=== PATIENT | male | born 1995 | race Caucasian/White ===

== ENCOUNTER 2017-08-05 12:10 | Emergency (ER) | payer OTHER ==
[~2017-08-05] VITALS: Ht 175.3 cm; Wt 97.7 kg
[2017-08-05] MEDS ORDERED: ACETAMINOPHEN 500 MG TABLET PO ONE (12:45)
[2017-08-05] MEDS ORDERED: DiphenhydrAMINE HCL 50 MG CAPSULE PO ONE (12:45)
[2017-08-05] MEDS ORDERED: PredniSONE 20 MG TABLET PO ONE (12:45)
[2017-08-05 13:20] VITALS: BP 125/65
== END 2017-08-05 13:44 | disposition home or self-care (01) ==
LOC: EMS 12:11
DX: R21 Rash and other nonspecific skin eruption (principal); R00.0 Tachycardia, unspecified; F17.210 Nicotine dependence, cigarettes, uncomplicated
CPT/HCPCS: 99285; 99406; J7512

== ENCOUNTER 2018-11-29 14:56 | Emergency (ER) | payer OTHER ==
[~2018-11-29] VITALS: Ht 175.3 cm; Wt 86.4 kg
[2018-11-29] MEDS ORDERED: ACETAMINOPHEN 325 MG TABLET PO ONE (16:15)
[2018-11-29] MEDS ORDERED: LIDOCAINE 1% 10 ML VIAL INJ ONE (16:15)
[2018-11-29] MEDS ORDERED: POVIDONE-IODINE 10% 15 ML SOLUTION UD TP ONE (16:15)
[2018-11-29] MEDS ORDERED: PERTUSS(ACELL),DIPH,TET VAC/PF 0.5 ML VIAL IM ONE (16:15)
[2018-11-29] MEDS ORDERED: BACITRACIN 0.9 GM PACKET OINTMENT TP ONE (16:15)
[2018-11-29 17:20] VITALS: BP 126/85
== END 2018-11-29 17:51 | disposition home or self-care (01) ==
LOC: EMS 14:57
DX: S61.210A Laceration without foreign body of right index finger without damage to nail, initial encounter (principal); F17.210 Nicotine dependence, cigarettes, uncomplicated; W45.8XXA Other foreign body or object entering through skin, initial encounter; Y93.89 Activity, other specified; Y92.098 Other place in other non-institutional residence as the place of occurrence of the external cause; Y99.8 Other external cause status
CPT/HCPCS: 12001; 90471; 90715; 99283; 99406; J3490